=== PATIENT | male | born 1955 | race African-American/Black ===

== ENCOUNTER 2020-06-18 12:34 | Inpatient (IN) ==
[2020-06-18 12:39] VITALS: BMI 27.8
[2020-06-18] MEDS ORDERED: NS 1000 ML 1,000 ML IV ONE (13:17)
[2020-06-18] MEDS ORDERED: TORADOL 30 MG VIAL IVP ONE (13:18)
--- NOTE | 2020-06-18 13:22 | DR.HYPOGLY ---
HPI Time Seen Time Seen by Provider: 06/18/20 13:12 PCP Primary Care Physician: DR. OLIVER Complaint Chief Complaint Doctors Comments: A 64 y/o male presenting with c/o hurting all over and shaking in the past 4 days. He's also had a poor appetite. His BS have been in upper 200s now. He takes Metformin 1000 mg daily. He states that he was feeling short winded this morning, but he had no cough or fever. Chief Complaint:: PT C/O CHECKING HIS GLUCOSE THIS AM ITS HIGH 285, AND HE IS NOT FEELING WELL AND NOT ABLE TO KEEP FOOD DOWN N 3 DAYS ,BR COVID-19 Coronavirus risk:travel/contact w/high risk person: No Has patient experienced Coronavirus symptoms: Yes Coronavirus symptoms experienced: Shortness of Breath Nurses notes reviewed Nurses Notes Review: Yes Source History Provided: Patient Mode of Arrival Mode of Arrival: Ambulatory Timing Onset of Chief Complaint: 06/16/20 Context [place]: Shaky Symptoms: Shaky and Poor appetite; denies Anxious, Sweaty, Seizure, Confusion, Slurred speech, Right sided weakness, Left sided weakness, Generalized weakness and Missed a meal History of: Diabetes Associated signs and symptoms Associated signs and symptoms: None PMH PMH Past Medical History: Yes Past Medical History: Diabetes, Gout and Hypertension Past Surgical History: Yes Surgical History: Cholecystectomy Family History History of Family Medical Conditions: Yes Family Medical History: Diabetes Mellitus Social History Does patient currently use any type of tobacco product: No Have you used tobacco products in the last 12 months: No Type of Tobacco Use: None Does any household member use tobacco: No Alcohol Use: None Do you use any recreational Drugs:: No Lives With: Dad Lives Where: Home Travel Risk Coronavirus risk:travel/contact w/high risk person: No Has patient experienced Coronavirus symptoms: Yes Coronavirus symptoms experienced: Shortness of Breath Infectious screening In the last 2 months have you had wt loss of >10#?: NO Have you had fever, night sweats or hemotysis?: No Have you traveled outside the country in the last 6 months?: No Isolation: Standard ROS Review of Systems Constitutional: No Symptoms Reported and Other (poor appetite) Eyes: No Symptoms Reported ENTM: No Symptoms Reported Respiratoy: No Symptoms Reported Cardiovascular: No Symptoms Reported Gastrointestinal/Abdominal: No Symptoms Reported Genitourinary: No Symptoms Reported Neurological: No Symptoms Reported Musculoskeletal: Other (body aches) Integumentary: No Symptoms Reported Hematologic/Lymphatic: No Symptoms Reported Endocrine: No Symptoms Reported Psychiatric: No Symptoms Reported PE Vital Signs Vitals: Temperature 98.5 F Pulse Rate 72 Respiratory Rate 18 Blood Pressure 140/62 O2 Sat by Pulse Oximetry 96 General Limitations: No Limitations General Appearance: Alert and In No Apparent Distress Eyes Eye exam: Normal Appearance and EOMI ENT ENT Exam: Normal Exam, Normal Oropharynx, Normal External Ear Exam and Mucous Membranes Moist Neck Neck Exam: Normal Inspection, Full ROM and Trachea Midline Chest Chest Inspection: Normal Inspection and Symmetric Chest Wall Rise Respiratory Respiratory Exam: Normal Lung Sounds Bilat Cardiovascular Cardiovascular Exam: Regular Rate, Normal Rhythm, Normal Heart Sounds, +S1 and +S2 Abdominal Exam Abdominal Exam: Normal Inspection, Normal Bowel Sounds and Soft Extremities Extremities Exam: Normal Inspection and Full ROM Back Back Exam: Normal Inspection and Full ROM Neurologic Neurological Exam: Alert and Oriented X3 Psychiatric Psychiatric Exam: Normal Affect and Normal Mood Skin Skin Exam: Dry and Normal Color COURSE Reevaluation 1st: Unchanged Consultation Consultation Comments: Pt's. presentation and findings were reviewed with Dr. Lopez at about 1550 hrs. today. Care plan was reviewed with him and then discussed with the pt. Education/Counseling Education/Counseling: Patient, Education and Counseling Educated On: Treatment, Diagnosis, Prognosis and Needs for Follow Up ROR Labs Reviewed Laboratory Results Reviewed?: Yes Result Diagrams: 06/18/20 13:29 06/18/20 13:29 Laboratory: WBC 14.0 X10^3/uL (3.6-10.0) H 06/18/20 13: RBC 4.84 X10^6/uL (4.7-6.0) 06/18/20 13:29 Hgb 12.8 g/dL (13.5-18.0) L 06/18/20 13:29 Hct 38.5 % (42.0-54.0) L 06/18/20 13:29 MCV 79.5 fL (80.0-100.0) L 06/18/20 13:29 MCH 26.5 pg (27.0-34.0) L 06/18/20 13:29 MCHC 33.3 g/dL (33.0-35.0) 06/18/20 13: RDW 14.1 % (11.6-16.5) 06/18/20 13: Plt Count 284 X10^3/uL (150.0-450.0) 06/18/20 13: MPV 8.3 fL (7.4-11.0) 06/18/20 13:29 Neut % (Auto) 81.1 % (42.0-75.0) H 06/18/20 13: Lymph % (Auto) 6.8 % (21.0-51.0) L 06/18/20 13:29 Catron % (Auto) 12.0 % (0.0-13.0) 06/18/20 13: Eos % (Auto) 0.0 % (0.9-2.9) L 06/18/20 13: Baso % (Auto) 0.1 % (0.2-1.0) L 06/18/20 13: Neut # (Auto) 11.3 x10^3/uL (2.2-4.8) H 06/18/20 13: Lymph # (Auto) 0.9 X10^3/uL (1.3-2.9) L 06/18/20 13:29 [place] # (Auto) 1.7 x10^3/uL (0.3-0.8) H 06/18/20 13: Eos # (Auto) 0.0 x10^3/uL (0.0-0.2) 06/18/20 13: Baso # (Auto) 0.0 X10^3/uL (0.0-0.1) 06/18/20 13: Absolute Nucleated RBC 0.0 /100WBC 06/18/20 13:29 Sample Site Lbr 06/18/20 15:08 ABG pH 7.490 (7.35-7.45) H 06/18/20 15:08 ABG pCO2 36.0 mmHg (35.0-45.0) 06/18/20 15:08 ABG pO2 66.0 mmHg (80.0-100.0) L 06/18/20 15:08 ABG HCO3 27.4 mmol/L (22-26) H 06/18/20 15:08 ABG O2 Saturation 94.0 % (90-100) 06/18/20 15:08 ABG Base Excess 4.0 mmol/L (-2.0-2.0) H 06/18/20 15:08 Mahesh Test Na 06/18/20 15:08 A-a Gradient 39.0 mmHg 06/18/20 15:08 FiO2 21.0 06/18/20 15:08 Blood Gas Comments Alexander well gmb 06/18/20 15:08 Sodium 130 mmol/L (136-145) L 06/18/20 13:29 Corrected Sodium 135 mmol/L (136-145) L 06/18/20 13:29 Potassium 3.6 mmol/L (3.5-5.1) 06/18/20 13:29 Chloride 92 mmol/L (98-107) L 06/18/20 13:29 Carbon Dioxide 28.7 mmol/L (21-32) 06/18/20 13:29 BUN 36 mg/dL (7-18) H 06/18/20 13:29 Creatinine 2.00 mg/dL (0.70-1.30) H 06/18/20 13:29 Est GFR (MDRD) Af Amer 43 (>60) L 06/18/20 13:29 Est GFR (MDRD) Non-Af 36 (>60) L 06/18/20 13:29 Glucose 311 mg/dL (65-99) H 06/18/20 13:29 POC Glucose (mg/dL) 288 mg/dL (65-99) H 06/18/20 15:54 Lactic Acid 1.3 mmol/L (0.4-2.0) 06/18/20 14:48 Calcium 8.8 mg/dL (8.5-10.1) 06/18/20 13:29 Corrected Calcium 10.1 mg/dL (8.5-10.1) 06/18/20 13:29 Ferritin 3694 ng/mL (26-388) H 06/18/20 13:29 Total Bilirubin 0.80 mg/dL (0.2-1.0) 06/18/20 13:29 AST 91 Units/L (15-37) H 06/18/20 13:29 ALT 87 Units/L (12-78) H 06/18/20 13:29 Alkaline Phosphatase 105 Units/L (46-116) 06/18/20 13:29 C-Reactive Protein 321.40 mg/L (0-3.0) H 06/18/20 14:48 Total Protein 7.9 g/dL (6.4-8.2) 06/18/20 13:29 Albumin 2.4 g/dL (3.4-5.0) L 06/18/20 13:29 Globulin 5.5 g/dL (2.5-4.5) H 06/18/20 13:29 Albumin/Globulin Ratio 0.4 Ratio (1.1-2.1) L 06/18/20 13:29 Specimen Type Clean catch urine 06/18/20 15:20 Urine Color Yellow (YELLOW) 06/18/20 15:20 Urine Appearance Slightly hazy (CLEAR) 06/18/20 15:20 Urine pH 5.0 (5.0 - 8.0) 06/18/20 15:20 Ur Specific [place] 1.025 (1.000-1.030) 06/18/20 15:20 Urine Protein 3+ (NEGATIVE) 06/18/20 15:20 Urine Glucose (UA) 4+ (NEGATIVE) 06/18/20 15:20 Urine Ketones Negative (NEGATIVE) 06/18/20 15:20 Urine Occult Blood 4+ (NEGATIVE) 06/18/20 15:20 Urine Nitrite Negative (NEGATIVE) 06/18/20 15:20 Urine Bilirubin Negative (NEGATIVE) 06/18/20 15:20 Urine Urobilinogen 1+ (NORMAL) 06/18/20 15:20 Ur Leukocyte Esterase Negative (NEGATIVE) 06/18/20 15:20 Urine RBC 3-5 /HPF (0-3) A 06/18/20 15:20 Urine WBC 0-2 /HPF (0-5) 06/18/20 15:20 Ur Squamous Epith Cells Negative /HPF (NEGATIVE) 06/18/20 15:20 Urine Bacteria Negative /HPF (NEGATIVE) 06/18/20 15:20 Ur Culture Indicated? No/not indicated 06/18/20 15:20 SARS-CoV-2 (PCR) Negative (NEGATIVE) 06/18/20 15:20 XRAY XRAY Interpreted by: Self X-ray Results: CXR: RML infiltrate. no cardiomegaly. Radiology report is pending. Opioid Opioid Risk Tool Age (Agustín box if 16-45): No History of Preadolescent Sexual Abuse: No Total: 0 Total Score Risk Category: Low Risk Copyright: [facility] predicting aberrant behaviors Diagnosis Discharge Problem: Lobar pneumonia, unspecified organism, Acute hyponatremia Leukocytopenia, unspecified Qualifiers: Leukopenia type: unspecified Qualified Code(s): D72.819 - Decreased white blood cell count, unspecified Uncontrolled type 2 diabetes mellitus Qualifiers: Glycemic state: with hyperglycemia Qualified Code(s): E11.65 - Type 2 diabetes mellitus with hyperglycemia ADDITIONAL NOTES Additional Notes Additional Notes: [id number] 1955 Sex: M Location: ER Order Number(s): [id number] Procedure(s):CHEST, 1 VIEW Ordering Physician: ENRIQUE PLATT Primary Care: JANE,None Service Date: 06/18/20 Service Time: 1320 HISTORY SOB/DM II STUDY CHEST x-ray, 1 VIEW COMPARISON X-ray 03/31/2020 FINDINGS The trachea is midline. The cardiac silhouette is unremarkable . Vague infiltrates are seen in the mid to lower right lung without definite involvement of the left lung. Findings are worrisome for pneumonia. No pneumothorax or pleural effusion is seen. No acute bony abnormality is seen. IMPRESSION Probable pneumonia in the right middle and lower lobes of the lungs. Continued x-ray follow-up is recommended to document resolution. Electronically signed by: Сергей Magana (Jun 18, 2020 15:10:16)
[2020-06-18 13:36] LABS: BASOPHILS % (AUTO) 0.1 % (0.2-1.0); HEMATOCRIT 38.5 % (42.0-54.0); HEMOGLOBIN 12.8 g/dL (13.5-18.0); LYMPHOCYTES # (AUTO) 0.9 X10^3/uL (1.3-2.9); LYMPHOCYTES % (AUTO) 6.8 % (21.0-51.0); MEAN CORPUSCULAR HEMOGLOBIN 26.5 pg (27.0-34.0); MEAN CORPUSCULAR HGB CONC 33.3 g/dL (33.0-35.0); MEAN CORPUSCULAR VOLUME 79.5 fL (80.0-100.0); MEAN PLATELET VOLUME 8.3 fL (7.4-11.0); MONOCYTES # (AUTO) 1.7 x10^3/uL (0.3-0.8); NEUTROPHILS # (AUTO) 11.3 x10^3/uL (2.2-4.8); NEUTROPHILS % (AUTO) 81.1 % (42.0-75.0); PLATELET COUNT 284 X10^3/uL (150.0-450.0); RED BLOOD COUNT 4.84 X10^6/uL (4.7-6.0); RED CELL DISTRIBUTION WIDTH 14.1 % (11.6-16.5)
[2020-06-18 13:46] LABS: ALBUMIN 2.4 g/dL (3.4-5.0); CALCIUM 8.8 mg/dL (8.5-10.1); CARBON DIOXIDE 28.7 mmol/L (21-32); COR CA(FOR HYPOALB) 10.1 mg/dL (8.5-10.1); TOTAL PROTEIN 7.9 g/dL (6.4-8.2)
[2020-06-18] MEDS ORDERED: ZOFRAN INJ 4 MG VIAL IVP ONE (13:56)
[2020-06-18] MEDS ORDERED: TORADOL 30 MG VIAL ONE (14:02)
[2020-06-18] MEDS ORDERED: LEVAQUIN PREMIX IV 750 MG 750 MG/150 ML BAG IV ONE ×2 (14:11→14:29)
--- NOTE | 2020-06-18 15:11 | RAD ---
HISTORYSOB/DM IISTUDYCHEST x-ray, 1 VIEWCOMPARISONX-ray 03/31/2020FINDINGSThe trachea is midline. The cardiac silhouette is unremarkable .Vague infiltrates are seen in the mid to lower right lung without definite involvement of the left lung. Findings are worrisome for pneumonia. No pneumothorax or pleural effusion is seen.No acute bony abnormality is seen.IMPRESSIONProbable pneumonia in the right middle and lower lobes of the lungs. Continued x-ray follow-up is recommended to document resolution.Electronically signed by: Сергей Magana (Jun 18, 2020 15:10:16)
[2020-06-18 15:14] LABS: ABG HCO3 27.4 mmol/L (22-26)
[2020-06-18 15:35] LABS: BILIRUBIN,URINE NEGATIVE (NEGATIVE); BLOOD/HEMOGLOBIN,URINE 4+ (NEGATIVE); GLUCOSE, URINE 4+ (NEGATIVE); KETONES,URINE NEGATIVE (NEGATIVE); LEUKOCYTE ESTERASE ,URINE NEGATIVE (NEGATIVE); NITRITES,URINE NEGATIVE (NEGATIVE); PROTEIN,URINE 3+ (NEGATIVE); UROBILINOGEN,URINE 1+ (NORMAL)
[2020-06-18 15:39] LABS: LACTIC ACID 1.3 mmol/L (0.4-2.0)
[2020-06-18 15:42] LABS: APPEARANCE,URINE SLIGHTLY HAZY (CLEAR); COLOR,URINE YELLOW (YELLOW)
[2020-06-18 15:43] LABS: BACTERIA,URINE NEGATIVE /HPF (NEGATIVE); SQUAMOUS EPITHELIAL CELL,UR NEGATIVE /HPF (NEGATIVE)
[2020-06-18] MEDS ORDERED: DUONEB 0.5 MG/3 MG (3 mL) NEB SCH (18:00)
[2020-06-18] MEDS ORDERED: PERCOCET TAB 5/325 MG PO PRN (18:02)
[2020-06-18] MEDS: ROBITUSSIN DM PO SCH ×2 (18:04→21:29)
[2020-06-18] MEDS ORDERED: NS 1/2 1000 ML IV 1,000 ML IV ONE (18:10)
[2020-06-18] MEDS: ZOSYN VIAL 2.25 GRAMS 2.25 G in NS 100 ML IV + SPIKE MINIBAG* 100 ML IV SCH ×2 (18:21→21:04)
[2020-06-18] MEDS: NS 1/2 1000 ML IV 1,000 ML IV SCH (18:22)
[2020-06-18] MEDS ORDERED: SOLU-Medrol 40 MG VIAL ONE (20:48)
[2020-06-18] MEDS ORDERED: PULMICORT NEB TX 0.5 MG NEB SCH (21:00)
[2020-06-18] MEDS: CATAPRES TAB 0.1 MG PO SCH (21:28)
[2020-06-18] MEDS: SOLU-Medrol 40 MG VIAL IVP SCH (21:29)
[2020-06-18] MEDS: HumaLOG SC PRN (21:29)
[2020-06-18] MEDS: DUONEB 0.5 MG/3 MG (3 mL) NEB SCH (22:20)
[2020-06-19 05:06] LABS: ABG ALLEN TEST POS; ABG BASE EXCESS 2.4 mmol/L (-2.0-2.0); ABG HCO3 26.4 mmol/L (22-26)
[2020-06-19 05:20] LABS: BASOPHILS % (AUTO) 0.2 % (0.2-1.0); HEMATOCRIT 35.8 % (42.0-54.0); LYMPHOCYTES # (AUTO) 0.7 X10^3/uL (1.3-2.9); MEAN CORPUSCULAR HEMOGLOBIN 26.8 pg (27.0-34.0); MEAN CORPUSCULAR HGB CONC 33.4 g/dL (33.0-35.0); MEAN CORPUSCULAR VOLUME 80.1 fL (80.0-100.0); MEAN PLATELET VOLUME 8.6 fL (7.4-11.0); MONOCYTES # (AUTO) 0.3 x10^3/uL (0.3-0.8); MONOCYTES % (AUTO) 2.5 % (0.0-13.0); NEUTROPHILS # (AUTO) 9.5 x10^3/uL (2.2-4.8); NEUTROPHILS % (AUTO) 90.3 % (42.0-75.0); PLATELET COUNT 281 X10^3/uL (150.0-450.0); RED BLOOD COUNT 4.47 X10^6/uL (4.7-6.0); RED CELL DISTRIBUTION WIDTH 14.3 % (11.6-16.5); WHITE BLOOD COUNT 10.5 X10^3/uL (3.6-10.0)
[2020-06-19 05:35] LABS: CALCIUM 8.7 mg/dL (8.5-10.1); CARBON DIOXIDE 26.8 mmol/L (21-32); COR CA(FOR HYPOALB) 10.3 mg/dL (8.5-10.1); CREATININE 1.88 mg/dL (0.70-1.30); TOTAL PROTEIN 7.2 g/dL (6.4-8.2)
--- NOTE | 2020-06-19 05:44 | RAD ---
HISTORYSOBSTUDYCHEST, 1 [id number]/16/2020FINDINGSThe trachea is midline. The cardiac silhouette is unremarkable. Mild infiltrates are again seen in the right lung base. Right upper and left lung ramirez remain clear. No pleural effusion or pneumothorax.. The bony thorax is unremarkable.IMPRESSIONRight basilar infiltrate unchanged from 06/18/2020Electronically signed by: Narciso Chase (Jun 19, 2020 05:42:53)
[2020-06-19] MEDS: HumaLOG SC PRN ×3 (05:51→16:35)
[2020-06-19] MEDS: SOLU-Medrol 40 MG VIAL IVP SCH ×3 (05:51→21:21)
[2020-06-19] MEDS: ZOSYN VIAL 2.25 GRAMS 2.25 G in NS 100 ML IV + SPIKE MINIBAG* 100 ML IV SCH ×3 (05:51→21:21)
[2020-06-19 06:04] LABS: BAND NEUTROPHILS % 10 % (0-10)
[2020-06-19 06:05] LABS: HYPOCHROMASIA SLIGHT; PLATELET MORPHOLOGY COMMENT NORMAL (NORMAL)
[2020-06-19] MEDS: NS 1/2 1000 ML IV 1,000 ML IV SCH ×2 (08:09→09:36)
[2020-06-19] MEDS: VSL#3 PO SCH (08:09)
[2020-06-19] MEDS ORDERED: REMDESIVIR (INVESTIGATIONAL DRUG GS-5734) 200 MG in NS 250 ML IV 250 ML IV NR (08:09)
[2020-06-19] MEDS: CATAPRES TAB 0.1 MG PO SCH ×2 (08:10→21:18)
[2020-06-19] MEDS: BENICAR TAB 40 MG PO SCH (08:10)
[2020-06-19] MEDS: ROBITUSSIN DM PO SCH ×4 (08:10→21:20)
[2020-06-19] MEDS: NORVASC TAB 10 MG PO SCH (08:11)
[2020-06-19] MEDS: LEVEMIR SC SCH ×2 (08:34→21:18)
[2020-06-19] MEDS: LOVENOX INJ 30 MG SYR SC SCH ×2 (08:35→21:19)
[2020-06-19] MEDS: TESSALON PERLES PO SCH ×3 (08:37→21:21)
[2020-06-19] MEDS: PROTONIX INJ 40 MG VIAL IVP SCH ×2 (08:37→21:20)
[2020-06-19] MEDS ORDERED: NAPROSYN PO SCH (09:00)
[2020-06-19] MEDS ORDERED: HYDROCHLOROTHIAZIDE 25 MG TAB PO SCH (09:00)
[2020-06-19] MEDS ORDERED: NS 1/2 1000 ML IV 1,000 ML IV ONE (09:34)
[2020-06-19] MEDS: PEPCID 20 MG IV PREMIX* 20 MG/50 ML BAG IV SCH ×2 (09:35→21:20)
[2020-06-19] MEDS: DUONEB 0.5 MG/3 MG (3 mL) NEB SCH ×4 (09:40→20:00)
[2020-06-19] MEDS: MUCOMYST (RESPIRATORY USE ONLY) NEB SCH ×2 (09:40→20:00)
[2020-06-19] MEDS: PULMICORT NEB TX 0.5 MG NEB SCH ×2 (09:40→20:00)
[2020-06-19 09:44] LABS: CKMB % 0.5 % (<4); CREATINE KINASE 441 Units/L (39-308); CREATINE KINASE MB 2.3 ng/mL (0-4.0); TROPONIN I < 0.02 ng/mL (0-1.5)
--- NOTE | 2020-06-19 10:13 | DR.H&P ---
H&P - History & Physical for Day of: H&P Date: 06/18/20 - Chief Complaint Chief Complaint: SOB, COUGH, BODY ACHES, NAUSEA AND VOMITING, POOR APPETITE, ELEVATED BLOOD GLUCOSE LEVELS - History of Present Illness History of Present Illness: IS A 64 YEAR OLD PATIENT OF . HE PRESENTED TO THE ER WITH COMPLAINTS OF SHORTENESS OF BREATH, MILD NON-PRODUCTIVE COUGH, CHEST DISCOMFORT, GENERALIZED BODY ACHES, NAUSEA AND VOMITING, POOR APPETITE, AND ELEVATED BLOOD GLUCOSE LEVELS. SYMPTOMS STARTED APPROXIMATELY FOUR DAYS PRIOR TO ARRIVAL. HIS PMH INCLUDES DIABETES, GOUT, HTN, CHOLECYSTECTOMY. ON ARRIVAL TO THE ER, VITALS WERE 98.5-91-20-93%RA-140/79. LABS WERE OBTAINED. ABNORMAL LAB VALUES INCLUDE THE FOLLOWING: WBC 14.0, HGB 12.8, HCT 38.5, SODIUM 130, CHLORIDE 92, BUN 36, CREATININE 2.00, GLUCOSE 311, FERRITIN 3694, AST 91, ALT 87, CRP 321.40, ALBUMIN 2.4, GLOBULIN 5.5. AN ABG WAS OBTAINED AND REVEALED: PH 7.490, PC02 36.0, P02 66.0, HC03 27.4, 02 SAT 94.0, BASE EXCESS 4.0, FI02 21.0. URINALYSIS REVEALED: WBC 0-2, RBC 3-5, OCCULT BLOOD 4+, PROTEIN 3+, BACTERIA NEGATIVE, LEUKOCYTES NEGATIVE. RAPID COVID WAS NEGATIVE, HOWEVER, A SEND OUT SWAB WAS COLLECTED WELL DUE TO SUSPECTED COVID. BLOOD CULTURES AND SPUTUM CULTURES WERE SET UP. A CHEST XRAY WAS OBTAINED AND REVEALED: Probable pneumonia in the right middle and lower lobes of the lungs. HE WAS GIVEN A NORMAL SALINE BOLUS, DUONEB X 1, TORADOL 30MG IV X 1 IN THE ER. HE WAS ADMITTED FOR FURTHER EVALUATION AND TREATMENT OF MULTIFOCAL PNEUMONIA, SUSPECTED COVID, HYPONATREMIA, AND CHRONIC KIDNEY DISEASE. HE WAS STARTED ON 1/2NS AT 75 ML/HR, ZOSYN 2.25G IV TID, LEVAQUIN 750MG IV Q48H, REMDESIVIR 100MG IV DAILY, DUONEBS QID, PULMICORT NEBS BID, MUCOMYST IN NEB TX, LOVENOX 30MG SC BID, SOLU-MEDROL 80MG IV Q8H, HUMALOG SLIDING SCALE, LEVEMIR 10 UNITS SC BID, TESSALON PERLES TID, ROBITUSSIN DM QID, PROTONIX 40MG IV BID, PEPCID 20MG IV Q12H, AND HIS HOME MEDICATIONS WERE RESUMED. WE WILL OBTAIN SERIAL CARDIAC ENZYMES, EKGs, AND AN ECHO. OTHERWISE, WE PLAN TO FOLLOW UP WITH AM LABS, CHEST XRAY, ABG, AND CONTINUE TO MONITOR. - Past Medical History Past Medical History: Hypertension, Diabetes, Gout - Past Surgical History Surgical History: Cholecystectomy - Family History Family Medical History: Diabetes Mellitus - Social History Does patient currently use any type of tobacco product: No Have you used tobacco products in the last 12 months: No Type of Tobacco Use: None Does any household member use tobacco: No Alcohol Use: None Drug Use: Prescription Drugs - Medications Home Medications: No Known Drug Allergies Allergy (Verified 06/18/20 12:35) CONTINUE taking the following medications amlodipine 10 mg PO DAILY 06/18/20 [History] cephalexin 500 mg PO QID 06/18/20 [History] clonidine HCl 0.1 mg PO BID 06/18/20 [History] diclofenac sodium 75 mg PO DAILY 06/18/20 [History] metformin 1,000 mg PO DAILY 06/18/20 [History] olmesartan-hydrochlorothiazide 1 tab PO DAILY 06/18/20 [History] oxycodone-acetaminophen 1 tab PO Q6H PRN 06/18/20 [History] tramadol 50 mg PO TID 06/18/20 [History] - Review of Systems Constitutional: Weakness Eyes: No Symptoms Reported ENT: No Symptoms Reported Respiratory: See HPI, Cough, Shortness of Breath, Wheezing Cardiovascular: Chest Pain Gastrointestinal: No Symptoms Reported Genitourinary: No Symptoms Reported Musculoskeletal: No Symptoms Reported Skin: No Symptoms Reported Neurological: Weakness - Physical Exam Vital Signs: Temperature 97.9 F Pulse Rate [Left Brachial] 50 Pulse Rate 68 Respiratory Rate 19 Blood Pressure [Left Arm] 120/71 Blood Pressure 140/62 O2 Sat by Pulse Oximetry 97 Oriented: Normal Eyes: Normal Ear: Normal Nose: Normal Throat: Normal Respiratory: Diminished Throughout, Wheezes Throughout Cardiovascular: Normal : Normal Auscultation: Bowel Sounds: Normal Palpation: Normal Tenderness: Normal Skin: Normal Musculoskeletal: Normal Psychiatric: Normal Mood Description: Calm Affect: Normal Speech Pattern: Clear - Assessment/Plan (1) Multifocal pneumonia Status: Acute Plan: ADMIT, 1/2NS AT 75 ML/HR, ZOSYN 2.25G IV TID, LEVAQUIN 750MG IV Q48H, REMDESIVIR 100MG IV DAILY, DUONEBS QID, PULMICORT NEBS BID, MUCOMYST IN NEB TX, LOVENOX 30MG SC BID, SOLU-MEDROL 80MG IV Q8H, HUMALOG SLIDING SCALE, LEVEMIR 10 UNITS SC BID, TESSALON PERLES TID, ROBITUSSIN DM QID, PROTONIX 40MG IV BID, PEPCID 20MG IV Q12H (2) Suspected COVID-19 virus infection Status: Acute (3) Acute hyponatremia Status: Acute (4) Chronic kidney disease Qualifiers: Chronic kidney disease stage: unspecified stage Qualified Code(s): N18.9 - Chronic kidney disease, unspecified Status: Chronic (5) Diabetes mellitus Qualifiers: Diabetes mellitus type: type 2 Diabetes mellitus joint terminal attack controller insulin use: unspecified joint terminal attack controller insulin use status Diabetes mellitus complication status: without complication Qualified Code(s): E11.9 - Type 2 diabetes mellitus without complications Status: Chronic (6) Hypertension Qualifiers: Hypertension type: essential hypertension Qualified Code(s): I10 - Essential (primary) hypertension Status: Chronic - Allergies Allergies/Adverse Reactions: Allergies Allergy/AdvReac Type Severity Reaction Status Date / Time No Known Drug Allergies Allergy Verified 06/18/20 12:35
[2020-06-19 13:10] LABS: CKMB % 0.5 % (<4); CREATINE KINASE 388 Units/L (39-308); TROPONIN I < 0.02 ng/mL (0-1.5)
[2020-06-19 17:40] LABS: CKMB % 0.6 % (<4); CREATINE KINASE 333 Units/L (39-308); CREATINE KINASE MB 1.9 ng/mL (0-4.0); TROPONIN I < 0.02 ng/mL (0-1.5)
[2020-06-19] MEDS: COLACE CAP 100 MG PO SCH (21:18)
[2020-06-19] MEDS: SNACK - Diabetic Appropriate PO SCH (21:21)
[2020-06-20] MEDS: NS 1/2 1000 ML IV 1,000 ML IV SCH ×2 (02:11→06:34)
[2020-06-20 05:25] LABS: BASOPHILS % (AUTO) 0.1 % (0.2-1.0); HEMATOCRIT 36.7 % (42.0-54.0); HEMOGLOBIN 11.8 g/dL (13.5-18.0); LYMPHOCYTES # (AUTO) 0.8 X10^3/uL (1.3-2.9); LYMPHOCYTES % (AUTO) 4.8 % (21.0-51.0); MEAN CORPUSCULAR HEMOGLOBIN 26.3 pg (27.0-34.0); MEAN CORPUSCULAR HGB CONC 32.2 g/dL (33.0-35.0); MEAN CORPUSCULAR VOLUME 81.6 fL (80.0-100.0); MEAN PLATELET VOLUME 9.2 fL (7.4-11.0); MONOCYTES # (AUTO) 0.4 x10^3/uL (0.3-0.8); MONOCYTES % (AUTO) 2.3 % (0.0-13.0); NEUTROPHILS # (AUTO) 14.7 x10^3/uL (2.2-4.8); NEUTROPHILS % (AUTO) 92.8 % (42.0-75.0); PLATELET COUNT 342 X10^3/uL (150.0-450.0); RED CELL DISTRIBUTION WIDTH 14.8 % (11.6-16.5); WHITE BLOOD COUNT 15.8 X10^3/uL (3.6-10.0)
[2020-06-20] MEDS ORDERED: NS 100 ML IV + SPIKE MINIBAG* 100 ML IV ONE (05:30)
[2020-06-20] MEDS ORDERED: NS 1/2 1000 ML IV 1,000 ML IV ONE (05:30)
[2020-06-20 05:41] LABS: ALBUMIN 1.9 g/dL (3.4-5.0); CALCIUM 8.4 mg/dL (8.5-10.1); CARBON DIOXIDE 25.9 mmol/L (21-32); COR CA(FOR HYPOALB) 10.1 mg/dL (8.5-10.1); CREATININE 2.12 mg/dL (0.70-1.30); TOTAL PROTEIN 6.9 g/dL (6.4-8.2)
--- NOTE | 2020-06-20 05:56 | RAD ---
HISTORYShortness of breathSTUDYChest AP [id number]/17/2020FINDINGSThe heart is upper limits normal in size. The jama are normal. The lungs are mildly hypoinflated but free of acute infiltrates. No pleural effusions are identified. Bony thorax is unremarkable.IMPRESSIONLungs hypoinflated but now clearElectronically signed by: DAVIDA BAKER (Jun 20, 2020 05:54:59)
[2020-06-20 06:21] LABS: PLATELET MORPHOLOGY COMMENT NORMAL (NORMAL)
[2020-06-20] MEDS: SOLU-Medrol 40 MG VIAL IVP SCH (06:32)
[2020-06-20] MEDS: ZOSYN VIAL 2.25 GRAMS 2.25 G in NS 100 ML IV + SPIKE MINIBAG* 100 ML IV SCH ×3 (06:33→22:00)
[2020-06-20] MEDS: TESSALON PERLES PO SCH ×3 (06:33→21:59)
[2020-06-20] MEDS: HumaLOG SC PRN ×3 (06:39→18:29)
[2020-06-20] MEDS: CATAPRES TAB 0.1 MG PO SCH ×2 (08:09→21:57)
[2020-06-20] MEDS: BENICAR TAB 40 MG PO SCH (08:09)
[2020-06-20] MEDS: ROBITUSSIN DM PO SCH ×4 (08:10→21:59)
[2020-06-20] MEDS: VSL#3 PO SCH (08:10)
[2020-06-20] MEDS: NORVASC TAB 10 MG PO SCH (08:10)
[2020-06-20] MEDS: LOVENOX INJ 30 MG SYR SC SCH ×2 (08:13→21:59)
[2020-06-20] MEDS: PEPCID 20 MG IV PREMIX* 20 MG/50 ML BAG IV SCH (08:15)
[2020-06-20] MEDS: PROTONIX INJ 40 MG VIAL IVP SCH ×2 (08:16→21:59)
[2020-06-20] MEDS: LEVEMIR SC SCH ×2 (08:38→21:58)
[2020-06-20] MEDS: NS 1000 ML 1,000 ML IV SCH (08:38)
[2020-06-20] MEDS ORDERED: LEVAQUIN PREMIX IV 750 MG 750 MG/150 ML BAG IV SCH (09:00)
[2020-06-20] MEDS: MUCOMYST (RESPIRATORY USE ONLY) NEB SCH ×2 (09:15→21:37)
[2020-06-20] MEDS: PULMICORT NEB TX 0.5 MG NEB SCH ×2 (09:15→21:37)
[2020-06-20] MEDS: DUONEB 0.5 MG/3 MG (3 mL) NEB SCH ×4 (09:15→21:38)
[2020-06-20] MEDS: REMDESIVIR (INVESTIGATIONAL DRUG GS-5734) 100 MG in NS 250 ML IV 250 ML IV SCH (10:16)
--- NOTE | 2020-06-20 10:42 | PCM.PROG ---
Progress Note Progress Note for Day of Date of Exam: 06/20/20 Subjective Subjective: Pt is a 64 yo m pmhx HTN, DMT2, CKD, admitted for pneumonia, suspected covid (rapid covid negative, PCR pending). This morning he is feeling a little better, sitting up in bed. He is currently on RA. Labs/imaging: Wbc 10.5>15.8, Hgb 11.8, Plt 342, Na 139, K 3.8, Cr 1.8>2.12, Gluc 320, CRP 280>169, CXR: lungs hypoinflated but now clear, TTE:EF:56%, SputumCx pending. His treatment course includes: IVF 1/2NS will change to NS and increase rate to 125 mL/h for PRABHU. Hold HCTZ. Continue Remdesivir, Abx: Levaquin + Zosyn, Solumedrol, Bronchodilators, immune supporting supplements. Pt having hyperglycemia, will increase Lantus to 15 units, is on SSI. Continue to monitor and follow up labs/imaging in the morning. Past Medical Family Social History Past Med/Fam/Surg Hx: No changes since H&P Allergies: Allergies No Known Drug Allergies Allergy (Verified 06/18/20 12:35) Review of Systems ROS: No change since H&P Vital Signs and I&O's Vital Signs: Temperature 98.2 F Pulse Rate [Left Brachial] 64 Pulse Rate 50 Respiratory Rate 25 Blood Pressure [Left Arm] 145/77 Blood Pressure 140/62 O2 Sat by Pulse Oximetry 98 Intake and Output: Intake & Output 06/17/20 06/18/20 06/19/20 06/20/20 23:59 23:59 23:59 23:59 Intake Total 480 / 480 3490 / 3490 1100 / 1100 Output Total 0 / 0 2450 / 2450 600 / 600 Balance 480 / 480 1040 / 1040 500 / 500 Physical Exam Oriented: Normal Eyes: Normal Ear: Normal Nose: Normal Throat: Normal Respiratory: Normal Cardiovascular: Normal : Normal Auscultation: Bowel Sounds: Normal Tenderness: Normal Skin: Normal Musculoskeletal: Normal Psychiatric: Normal Mood Description: Calm Affect: Normal Speech Pattern: Clear and Appropriate Laboratory and Diagnostics Result Diagrams: 06/20/20 04:01 06/20/20 04:01 Labs: 06/18/20 18:15 Sputum - Expectorated Sputum Sputum Culture - Final 06/18/20 18:15 Sputum - Expectorated Sputum - Final 06/18/20 14:55 Blood Blood Culture - Preliminary 06/18/20 14:48 Blood Blood Culture - Preliminary Laboratory WBC 15.8 X10^3/uL (3.6-10.0) H 06/20/20 04:01 RBC 4.50 X10^6/uL (4.7-6.0) L 06/20/20 04:01 Hgb 11.8 g/dL (13.5-18.0) L 06/20/20 04:01 Hct 36.7 % (42.0-54.0) L 06/20/20 04:01 MCV 81.6 fL (80.0-100.0) 06/20/20 04:01 MCH 26.3 pg (27.0-34.0) L 06/20/20 04:01 MCHC 32.2 g/dL (33.0-35.0) L 06/20/20 04:01 RDW 14.8 % (11.6-16.5) 06/20/20 04:01 Plt Count 342 X10^3/uL (150.0-450.0) 06/20/20 04:01 Plt Count Comment Adequate (ADEQUATE) 06/20/20 04:01 MPV 9.2 fL (7.4-11.0) 06/20/20 04:01 Neut % (Auto) 92.8 % (42.0-75.0) H 06/20/20 04:01 Lymph % (Auto) 4.8 % (21.0-51.0) L 06/20/20 04:01 [place] % (Auto) 2.3 % (0.0-13.0) 06/20/20 04:01 Eos % (Auto) 0.0 % (0.9-2.9) L 06/20/20 04:01 Baso % (Auto) 0.1 % (0.2-1.0) L 06/20/20 04:01 Neut # (Auto) 14.7 x10^3/uL (2.2-4.8) H 06/20/20 04:01 Lymph # (Auto) 0.8 X10^3/uL (1.3-2.9) L 06/20/20 04:01 [place] # (Auto) 0.4 x10^3/uL (0.3-0.8) 06/20/20 04:01 Eos # (Auto) 0.0 x10^3/uL (0.0-0.2) 06/20/20 04:01 Baso # (Auto) 0.0 X10^3/uL (0.0-0.1) 06/20/20 04:01 Absolute Nucleated RBC 0.0 /100WBC 06/20/20 04:01 Total Counted 100 06/20/20 04:01 Neutrophils % (Manual) 91 % (39-76) H 06/20/20 04:01 Band Neutrophils % 10 % (0-10) 06/19/20 04:00 Lymphocytes % (Manual) 7 % (13-43) L 06/20/20 04:01 Monocytes % (Manual) 2 % (4-9) L 06/20/20 04:01 Plt Morphology Comment Normal (NORMAL) 06/20/20 04:01 RBC Morphology Normal (NORMAL) 06/20/20 04:01 Hypochromasia Slight A 06/19/20 04:00 Sample Site Lrad 06/19/20 04:57 ABG pH 7.450 (7.35-7.45) 06/19/20 04:57 ABG pCO2 38.0 mmHg (35.0-45.0) 06/19/20 04:57 ABG pO2 85.0 mmHg (80.0-100.0) 06/19/20 04:57 ABG HCO3 26.4 mmol/L (22-26) H 06/19/20 04:57 ABG O2 Saturation 97.0 % (90-100) 06/19/20 04:57 ABG Base Excess 2.4 mmol/L (-2.0-2.0) H 06/19/20 04:57 Mahesh Test Pos 06/19/20 04:57 A-a Gradient 17.0 mmHg 06/19/20 04:57 FiO2 21.0 06/19/20 04:57 Blood Gas Comments Alexander abg well-mtf 06/19/20 04:57 Sodium 132 mmol/L (136-145) L 06/20/20 04:01 Corrected Sodium 139 mmol/L (136-145) 06/20/20 04:01 Potassium 3.8 mmol/L (3.5-5.1) 06/20/20 04:01 Chloride 97 mmol/L (98-107) L 06/20/20 04:01 Carbon Dioxide 25.9 mmol/L (21-32) 06/20/20 04:01 BUN 53 mg/dL (7-18) H 06/20/20 04:01 Creatinine 2.12 mg/dL (0.70-1.30) H 06/20/20 04:01 Est GFR (MDRD) Af Amer 40 (>60) L 06/20/20 04:01 Est GFR (MDRD) Non-Af 33 (>60) L 06/20/20 04:01 Glucose 392 mg/dL (65-99) H 06/20/20 04:01 POC Glucose (mg/dL) 320 mg/dL (65-99) H 06/20/20 06:18 Lactic Acid 1.3 mmol/L (0.4-2.0) 06/18/20 14:48 Calcium 8.4 mg/dL (8.5-10.1) L 06/20/20 04:01 Corrected Calcium 10.1 mg/dL (8.5-10.1) 06/20/20 04:01 Ferritin 3914 ng/mL (26-388) H 06/20/20 04:01 Total Bilirubin 0.50 mg/dL (0.2-1.0) 06/20/20 04:01 AST 37 Units/L (15-37) 06/20/20 04:01 ALT 60 Units/L (12-78) 06/20/20 04:01 Alkaline Phosphatase 106 Units/L (46-116) 06/20/20 04:01 Creatine Kinase 333 Units/L (39-308) H 06/19/20 16:45 CK-MB (CK-2) 1.9 ng/mL (0-4.0) 06/19/20 16:45 CK/CKMB % Calc 0.6 % (<4) 06/19/20 16:45 Troponin I < 0.02 ng/mL (0-1.5) 06/19/20 16:45 C-Reactive Protein 169.70 mg/L (0-3.0) H 06/20/20 04:01 B-Natriuretic Peptide 80.5 pg/mL (0-79) H 06/19/20 08:46 Total Protein 6.9 g/dL (6.4-8.2) 06/20/20 04:01 Albumin 1.9 g/dL (3.4-5.0) L 06/20/20 04:01 Globulin 5.0 g/dL (2.5-4.5) H 06/20/20 04:01 Albumin/Globulin Ratio 0.4 Ratio (1.1-2.1) L 06/20/20 04:01 Specimen Type Clean catch urine 06/18/20 15:20 Urine Color Yellow (YELLOW) 06/18/20 15:20 Urine Appearance Slightly hazy (CLEAR) 06/18/20 15:20 Urine pH 5.0 (5.0 - 8.0) 06/18/20 15:20 Ur Specific [place] 1.025 (1.000-1.030) 06/18/20 15:20 Urine Protein 3+ (NEGATIVE) 06/18/20 15:20 Urine Glucose (UA) 4+ (NEGATIVE) 06/18/20 15:20 Urine Ketones Negative (NEGATIVE) 06/18/20 15:20 Urine Occult Blood 4+ (NEGATIVE) 06/18/20 15:20 Urine Nitrite Negative (NEGATIVE) 06/18/20 15:20 Urine Bilirubin Negative (NEGATIVE) 06/18/20 15:20 Urine Urobilinogen 1+ (NORMAL) 06/18/20 15:20 Ur Leukocyte Esterase Negative (NEGATIVE) 06/18/20 15:20 Urine RBC 3-5 /HPF (0-3) A 06/18/20 15:20 Urine WBC 0-2 /HPF (0-5) 06/18/20 15:20 Ur Squamous Epith Cells Negative /HPF (NEGATIVE) 06/18/20 15:20 Urine Bacteria Negative /HPF (NEGATIVE) 06/18/20 15:20 Ur Culture Indicated? No/not indicated 06/18/20 15:20 SARS-CoV-2 (PCR) Negative (NEGATIVE) 06/18/20 15:20 Plan (1) Multifocal pneumonia: Status: Acute Plan: ADMIT, NS@125 ML/HR, ZOSYN 2.25G IV TID, LEVAQUIN 750MG IV Q48H, REMDESIVIR 100MG IV DAILY, DUONEBS QID, PULMICORT NEBS BID, MUCOMYST IN NEB [place], LOVENOX 30MG SC BID, SOLU-MEDROL 80MG IV Q8H, HUMALOG SLIDING SCALE, LEVEMIR 10 UNITS SC BID, TESSALON PERLES TID, ROBITUSSIN DM QID, PROTONIX 40MG IV BID, PEPCID 20MG IV Q12H (2) Suspected COVID-19 virus infection: Status: Acute (3) Acute hyponatremia: Status: Acute (4) Chronic kidney disease: Status: Chronic Qualifiers: Chronic kidney disease stage: unspecified stage Qualified Code(s): N18.9 - Chronic kidney disease, unspecified (5) Diabetes mellitus: Status: Chronic Qualifiers: Diabetes mellitus complication status: without complication Diabetes m [facility] senior living insulin use: unspecified senior living insulin use status Di abetes mellitus type: type 2 Qualified Code(s): E11.9 - Type 2 diabetes mellitus without complications (6) Hypertension: Status: Chronic Qualifiers: Hypertension type: essential hypertension Qualified Code(s): I10 - Essential (primary) hypertension
[2020-06-20] MEDS ORDERED: HALDOL INJ IM ONE (12:49)
[2020-06-20] MEDS: COLACE CAP 100 MG PO SCH (21:57)
[2020-06-20] MEDS: SNACK - Diabetic Appropriate PO SCH (22:00)
[2020-06-21] MEDS: NS 1000 ML 1,000 ML IV SCH (01:00)
[2020-06-21 04:55] LABS: BASOPHILS % (AUTO) 0.1 % (0.2-1.0); HEMATOCRIT 35.4 % (42.0-54.0); HEMOGLOBIN 11.4 g/dL (13.5-18.0); LYMPHOCYTES # (AUTO) 1.1 X10^3/uL (1.3-2.9); LYMPHOCYTES % (AUTO) 6.2 % (21.0-51.0); MEAN CORPUSCULAR HEMOGLOBIN 26.1 pg (27.0-34.0); MEAN CORPUSCULAR HGB CONC 32.3 g/dL (33.0-35.0); MEAN CORPUSCULAR VOLUME 80.8 fL (80.0-100.0); MEAN PLATELET VOLUME 8.5 fL (7.4-11.0); MONOCYTES % (AUTO) 5.7 % (0.0-13.0); NEUTROPHILS # (AUTO) 15.3 x10^3/uL (2.2-4.8); PLATELET COUNT 401 X10^3/uL (150.0-450.0); RED BLOOD COUNT 4.38 X10^6/uL (4.7-6.0); RED CELL DISTRIBUTION WIDTH 14.2 % (11.6-16.5); WHITE BLOOD COUNT 17.4 X10^3/uL (3.6-10.0)
[2020-06-21 05:11] LABS: CALCIUM 8.4 mg/dL (8.5-10.1); CARBON DIOXIDE 28.8 mmol/L (21-32); CREATININE 1.81 mg/dL (0.70-1.30); TOTAL PROTEIN 6.5 g/dL (6.4-8.2)
[2020-06-21] MEDS ORDERED: KLOR-CON PO PRN (05:36)
[2020-06-21] MEDS ORDERED: MICRO K EXTEN CAP 10 MEQ PO PRN (05:36)
[2020-06-21] MEDS ORDERED: K-DUR TAB 20 MEQ PO PRN (05:36)
[2020-06-21] MEDS ORDERED: POTASSIUM CHL 40 MEQ/NS 0.45% 500 ML IV PRN (05:36)
[2020-06-21] MEDS ORDERED: POTASSIUM CHL 60 MEQ/NS 0.45% 500 ML IV PRN (05:36)
[2020-06-21] MEDS ORDERED: POTASSIUM CHLORIDE LIQ 20 MEQ UDC PO PRN (05:36)
[2020-06-21] MEDS ORDERED: K-RIDER 10 MEQ/NS 100 ML 10 MEQ/100 ML BAG IV PRN (05:36)
--- NOTE | 2020-06-21 05:43 | RAD ---
HISTORYSOBSTUDYAP [id number]/18/2020FINDINGSContinued cardiac prominence with essentially clear lungs and pleura l spaces. There is no evidence for segmental or lobar consolidation, pulmonary edema or pleural fluid .IMPRESSIONNo interval change demonstrated since 1 day prior.Electronically signed by: SAV ELLIS (Jun 21, 2020 05:42:50)
[2020-06-21] MEDS: TESSALON PERLES PO SCH (06:21)
[2020-06-21] MEDS: ZOSYN VIAL 2.25 GRAMS 2.25 G in NS 100 ML IV + SPIKE MINIBAG* 100 ML IV SCH (06:21)
[2020-06-21] MEDS: HumaLOG SC PRN (06:22)
[2020-06-21] MEDS: DUONEB 0.5 MG/3 MG (3 mL) NEB SCH (09:00)
[2020-06-21] MEDS: MUCOMYST (RESPIRATORY USE ONLY) NEB SCH (09:00)
[2020-06-21] MEDS: PULMICORT NEB TX 0.5 MG NEB SCH (09:00)
[2020-06-21] MEDS: BENICAR TAB 40 MG PO SCH (09:29)
[2020-06-21] MEDS: CATAPRES TAB 0.1 MG PO SCH (09:30)
[2020-06-21] MEDS: LEVEMIR SC SCH (09:30)
[2020-06-21] MEDS: LOVENOX INJ 30 MG SYR SC SCH (09:33)
[2020-06-21] MEDS: PEPCID 20 MG IV PREMIX* 20 MG/50 ML BAG IV SCH (09:34)
[2020-06-21] MEDS: NORVASC TAB 10 MG PO SCH (09:34)
[2020-06-21] MEDS: REMDESIVIR (INVESTIGATIONAL DRUG GS-5734) 100 MG in NS 250 ML IV 250 ML IV SCH (09:35)
[2020-06-21] MEDS: VSL#3 PO SCH (09:35)
[2020-06-21] MEDS: PROTONIX INJ 40 MG VIAL IVP SCH (09:35)
[2020-06-21] MEDS: ROBITUSSIN DM PO SCH (09:36)
--- NOTE | 2020-06-21 10:13 | W.DIS.FURT ---
Summary of Discharge Discharge Summary of Date Date of Exam: 06/21/20 Admission Date Date of Admission: 06/18/20 Admission Diagnosis Patient Problems (Updated 06/19/20 @ 10:21 by Erick Lopez) Lobar pneumonia, unspecified organism (Acute) J18.1 Leukocytopenia, unspecified (Acute) D72.819 Acute hyponatremia (Acute) E87.1 Uncontrolled type 2 diabetes mellitus (Acute) E11.65 Multifocal pneumonia (Acute) J18.9 Suspected COVID-19 virus infection (Acute) Z20.828 Chronic kidney disease (Chronic) N18.9 Diabetes mellitus (Chronic) E11.9 Hypertension (Chronic) I10 Hospital Course: Pt is a 64 yo m pmhx HTN, DMT2, CKD, admitted for pneumonia. He received Remdesivir, Abx: Levaquin + Zosyn, Solumedrol, Bronchodilators, immune supporting supplements. He was found to be covid negative during hospital stay(rapid and pcr). On day of discharge he was breathing comfortably on RA. Labs/imaging: Wbc 17.1(d/t steroids), Hgb 11.4, Plt 401, Na 141, K 3.1, Cr 1.81(improving downtrending), Gluc 236, CRP 169>94, CXR: negative, TTE:EF:56%, SputumCx normal chase. He received IVF for PRABHU and HCTZ was disconitnued. Pt had hyperglycemia and had been started on Lantus requiring 15 units BID. Pt discharged home in stable condition with rx z-pack and short 5 day course of prednisone. Instructed to follow up with pcp in 1 week. Vital Signs: Vital Signs (72 hours) 06/18/20 12:36 06/18/20 14:04 06/18/20 15:56 Temperature 98.5 F Pulse Rate 91 H 72 Pulse Rate [Left Brachial] Respiratory Rate 20 20 18 Blood Pressure 140/79 140/62 Blood Pressure [Left Arm] O2 Sat by Pulse Oximetry 93 L 96 06/18/20 17:45 06/18/20 18:00 06/18/20 18:08 Temperature 98.2 F Pulse Rate 66 61 Pulse Rate [Left Brachial] 62 Respiratory Rate 20 21 Blood Pressure 159/93 Blood Pressure [Left Arm] 136/82 O2 Sat by Pulse Oximetry 97 97 96 06/18/20 18:19 06/18/20 19:00 06/18/20 20:00 Temperature 97.6 F Pulse Rate 61 Pulse Rate [Left Brachial] 63 63 Respiratory Rate 11 L 21 Blood Pressure 140/62 Blood Pressure [Left Arm] 140/83 167/94 O2 Sat by Pulse Oximetry 96 97 97 06/18/20 21:00 06/18/20 22:00 06/18/20 22:20 Temperature Pulse Rate 68 Pulse Rate [Left Brachial] 62 60 Respiratory Rate 20 24 Blood Pressure Blood Pressure [Left Arm] 172/93 145/90 O2 Sat by Pulse Oximetry 98 96 95 06/18/20 23:00 06/19/20 00:00 06/19/20 01:00 Temperature 98.2 F Pulse Rate Pulse Rate [Left Brachial] 57 L 55 L 54 L Respiratory Rate 26 H 24 20 Blood Pressure Blood Pressure [Left Arm] 145/92 142/87 137/84 O2 Sat by Pulse Oximetry 96 98 97 06/19/20 02:00 06/19/20 03:00 06/19/20 04:00 Temperature 97.9 F Pulse Rate Pulse Rate [Left Brachial] 53 L 50 L 60 Respiratory Rate 21 19 22 Blood Pressure Blood Pressure [Left Arm] 146/87 135/77 151/87 O2 Sat by Pulse Oximetry 98 96 98 06/19/20 05:00 06/19/20 06:00 06/19/20 07:00 Temperature Pulse Rate Pulse Rate [Left Brachial] 60 50 L 59 L Respiratory Rate 20 19 21 Blood Pressure Blood Pressure [Left Arm] 127/80 120/71 132/83 O2 Sat by Pulse Oximetry 98 97 97 06/19/20 08:00 06/19/20 09:00 06/19/20 09:40 Temperature 97.9 F Pulse Rate Pulse Rate [Left Brachial] 68 61 Respiratory Rate 23 22 Blood Pressure Blood Pressure [Left Arm] 122/80 124/82 O2 Sat by Pulse Oximetry 97 98 99 06/19/20 10:00 06/19/20 11:00 06/19/20 12:00 Temperature 98.1 F Pulse Rate Pulse Rate [Left Brachial] 60 63 48 L Respiratory Rate 30 H 17 33 H Blood Pressure Blood Pressure [Left Arm] 127/84 138/82 129/79 O2 Sat by Pulse Oximetry 98 99 98 06/19/20 13:00 06/19/20 14:00 06/19/20 15:00 Temperature Pulse Rate Pulse Rate [Left Brachial] 70 72 63 Respiratory Rate 21 15 21 Blood Pressure Blood Pressure [Left Arm] 90/71 128/82 119/77 O2 Sat by Pulse Oximetry 98 98 97 06/19/20 16:00 06/19/20 17:00 06/19/20 18:00 Temperature 98.5 F Pulse Rate Pulse Rate [Left Brachial] 58 L 49 L 48 L Respiratory Rate 21 22 21 Blood Pressure Blood Pressure [Left Arm] 141/84 123/77 135/80 O2 Sat by Pulse Oximetry 97 98 98 06/19/20 19:00 06/19/20 20:00 06/19/20 21:00 Temperature 97.6 F Pulse Rate 50 L Pulse Rate [Left Brachial] 63 51 L 61 Respiratory Rate 24 21 23 Blood Pressure Blood Pressure [Left Arm] 119/88 136/81 117/59 O2 Sat by Pulse Oximetry 96 96 97 06/19/20 22:00 06/19/20 23:00 06/20/20 00:00 Temperature 97.7 F Pulse Rate Pulse Rate [Left Brachial] 61 60 46 L Respiratory Rate 24 26 H 20 Blood Pressure Blood Pressure [Left Arm] 143/79 139/80 117/63 O2 Sat by Pulse Oximetry 98 98 97 06/20/20 01:00 06/20/20 02:00 06/20/20 03:00 Temperature Pulse Rate Pulse Rate [Left Brachial] 43 L 49 L 44 L Respiratory Rate 19 19 20 Blood Pressure Blood Pressure [Left Arm] 104/57 148/67 129/78 O2 Sat by Pulse Oximetry 98 99 98 06/20/20 04:00 06/20/20 05:00 06/20/20 06:00 Temperature 97.8 F Pulse Rate Pulse Rate [Left Brachial] 45 L 43 L 43 L Respiratory Rate 20 19 18 Blood Pressure Blood Pressure [Left Arm] 144/77 127/77 149/82 O2 Sat by Pulse Oximetry 99 96 98 06/20/20 07:00 06/20/20 08:00 06/20/20 09:00 Temperature 98.2 F Pulse Rate Pulse Rate [Left Brachial] 46 L 84 64 Respiratory Rate 19 19 25 H Blood Pressure Blood Pressure [Left Arm] 127/79 115/73 145/77 O2 Sat by Pulse Oximetry 98 97 100 06/20/20 09:15 06/20/20 10:14 06/20/20 11:00 Temperature Pulse Rate Pulse Rate [Left Brachial] 72 65 Respiratory Rate 22 23 Blood Pressure Blood Pressure [Left Arm] 116/64 122/74 O2 Sat by Pulse Oximetry 98 96 97 06/20/20 12:00 06/20/20 13:37 06/20/20 15:00 Temperature 98.2 F Pulse Rate Pulse Rate [Left Brachial] 64 74 72 Respiratory Rate 25 H 17 18 Blood Pressure Blood Pressure [Left Arm] 145/77 126/75 O2 Sat by Pulse Oximetry 100 98 97 06/20/20 16:00 06/20/20 17:28 06/20/20 18:00 Temperature Pulse Rate Pulse Rate [Left Brachial] 67 67 63 Respiratory Rate 20 21 27 H Blood Pressure Blood Pressure [Left Arm] 126/65 124/64 O2 Sat by Pulse Oximetry 98 98 100 06/20/20 19:00 06/20/20 21:00 06/20/20 21:38 Temperature 97.7 F Pulse Rate 59 L Pulse Rate [Left Brachial] 56 L 72 Respiratory Rate 17 25 H Blood Pressure Blood Pressure [Left Arm] 127/75 144/75 O2 Sat by Pulse Oximetry 99 97 100 06/20/20 22:00 06/20/20 23:00 06/21/20 00:00 Temperature 97.6 F Pulse Rate Pulse Rate [Left Brachial] 66 62 62 Respiratory Rate 18 16 12 Blood Pressure Blood Pressure [Left Arm] 144/81 111/56 117/75 O2 Sat by Pulse Oximetry 98 96 99 06/21/20 01:00 06/21/20 02:00 06/21/20 03:00 Temperature Pulse Rate Pulse Rate [Left Brachial] 60 58 L 49 L Respiratory Rate 14 16 15 Blood Pressure Blood Pressure [Left Arm] 139/76 136/76 135/83 O2 Sat by Pulse Oximetry 99 98 100 06/21/20 04:00 06/21/20 05:00 06/21/20 06:00 Temperature 97.8 F Pulse Rate Pulse Rate [Left Brachial] 53 L 52 L 53 L Respiratory Rate 15 13 12 Blood Pressure Blood Pressure [Left Arm] 140/75 147/81 127/67 O2 Sat by Pulse Oximetry 100 100 100 06/21/20 09:00 Temperature Pulse Rate 53 L Pulse Rate [Left Brachial] Respiratory Rate Blood Pressure Blood Pressure [Left Arm] O2 Sat by Pulse Oximetry 100 Labs: Laboratory Last Values WBC 17.4 X10^3/uL (3.6-10.0) H 06/21/20 04:00 RBC 4.38 X10^6/uL (4.7-6.0) L 06/21/20 04:00 Hgb 11.4 g/dL (13.5-18.0) L 06/21/20 04:00 Hct 35.4 % (42.0-54.0) L 06/21/20 04:00 MCV 80.8 fL (80.0-100.0) 06/21/20 04:00 MCH 26.1 pg (27.0-34.0) L 06/21/20 04:00 MCHC 32.3 g/dL (33.0-35.0) L 06/21/20 04:00 RDW 14.2 % (11.6-16.5) 06/21/20 04:00 Plt Count 401 X10^3/uL (150.0-450.0) 06/21/20 04:00 Plt Count Comment Adequate (ADEQUATE) 06/20/20 04:01 MPV 8.5 fL (7.4-11.0) 06/21/20 04:00 Neut % (Auto) 88.0 % (42.0-75.0) H 06/21/20 04:00 Lymph % (Auto) 6.2 % (21.0-51.0) L 06/21/20 04:00 [place] % (Auto) 5.7 % (0.0-13.0) 06/21/20 04:00 Eos % (Auto) 0.0 % (0.9-2.9) L 06/21/20 04:00 Baso % (Auto) 0.1 % (0.2-1.0) L 06/21/20 04:00 Neut # (Auto) 15.3 x10^3/uL (2.2-4.8) H 06/21/20 04:00 Lymph # (Auto) 1.1 X10^3/uL (1.3-2.9) L 06/21/20 04:00 [place] # (Auto) 1.0 x10^3/uL (0.3-0.8) H 06/21/20 04:00 Eos # (Auto) 0.0 x10^3/uL (0.0-0.2) 06/21/20 04:00 Baso # (Auto) 0.0 X10^3/uL (0.0-0.1) 06/21/20 04:00 Absolute Nucleated RBC 0.0 /100WBC 06/21/20 04:00 Total Counted 100 06/20/20 04:01 Neutrophils % (Manual) 91 % (39-76) H 06/20/20 04:01 Band Neutrophils % 10 % (0-10) 06/19/20 04:00 Lymphocytes % (Manual) 7 % (13-43) L 06/20/20 04:01 Monocytes % (Manual) 2 % (4-9) L 06/20/20 04:01 Plt Morphology Comment Normal (NORMAL) 06/20/20 04:01 RBC Morphology Normal (NORMAL) 06/20/20 04:01 Hypochromasia Slight A 06/19/20 04:00 Sample Site Lrad 06/19/20 04:57 ABG pH 7.450 (7.35-7.45) 06/19/20 04:57 ABG pCO2 38.0 mmHg (35.0-45.0) 06/19/20 04:57 ABG pO2 85.0 mmHg (80.0-100.0) 06/19/20 04:57 ABG HCO3 26.4 mmol/L (22-26) H 06/19/20 04:57 ABG O2 Saturation 97.0 % (90-100) 06/19/20 04:57 ABG Base Excess 2.4 mmol/L (-2.0-2.0) H 06/19/20 04:57 Mahesh Test Pos 06/19/20 04:57 A-a Gradient 17.0 mmHg 06/19/20 04:57 FiO2 21.0 06/19/20 04:57 Blood Gas Comments Alexander abg well-mtf 06/19/20 04:57 Sodium 138 mmol/L (136-145) 06/21/20 04:00 Corrected Sodium 141 mmol/L (136-145) 06/21/20 04:00 Potassium 3.1 mmol/L (3.5-5.1) L 06/21/20 08:07 Chloride 103 mmol/L (98-107) 06/21/20 04:00 Carbon Dioxide 28.8 mmol/L (21-32) 06/21/20 04:00 BUN 44 mg/dL (7-18) H 06/21/20 04:00 Creatinine 1.81 mg/dL (0.70-1.30) H 06/21/20 04:00 Est GFR (MDRD) Af Amer 48 (>60) L 06/21/20 04:00 Est GFR (MDRD) Non-Af 40 (>60) L 06/21/20 04:00 Glucose 236 mg/dL (65-99) H 06/21/20 04:00 POC Glucose (mg/dL) 315 mg/dL (65-99) H 06/20/20 20:31 Lactic Acid 1.3 mmol/L (0.4-2.0) 06/18/20 14:48 Calcium 8.4 mg/dL (8.5-10.1) L 06/21/20 04:00 Corrected Calcium 10.0 mg/dL (8.5-10.1) 06/21/20 04:00 Magnesium 2.3 mg/dL (1.7-2.9) 06/21/20 04:00 Ferritin 3914 ng/mL (26-388) H 06/20/20 04:01 Total Bilirubin 0.40 mg/dL (0.2-1.0) 06/21/20 04:00 AST 25 Units/L (15-37) 06/21/20 04:00 ALT 49 Units/L (12-78) 06/21/20 04:00 Alkaline Phosphatase 106 Units/L (46-116) 06/21/20 04:00 Creatine Kinase 333 Units/L (39-308) H 06/19/20 16:45 CK-MB (CK-2) 1.9 ng/mL (0-4.0) 06/19/20 16:45 CK/CKMB % Calc 0.6 % (<4) 06/19/20 16:45 Troponin I < 0.02 ng/mL (0-1.5) 06/19/20 16:45 C-Reactive Protein 94.00 mg/L (0-3.0) H 06/21/20 04:00 B-Natriuretic Peptide 80.5 pg/mL (0-79) H 06/19/20 08:46 Total Protein 6.5 g/dL (6.4-8.2) 06/21/20 04:00 Albumin 2.0 g/dL (3.4-5.0) L 06/21/20 04:00 Globulin 4.5 g/dL (2.5-4.5) 06/21/20 04:00 Albumin/Globulin Ratio 0.4 Ratio (1.1-2.1) L 06/21/20 04:00 Specimen Type Clean catch urine 06/18/20 15:20 Urine Color Yellow (YELLOW) 06/18/20 15:20 Urine Appearance Slightly hazy (CLEAR) 06/18/20 15:20 Urine pH 5.0 (5.0 - 8.0) 06/18/20 15:20 Ur Specific [place] 1.025 (1.000-1.030) 06/18/20 15:20 Urine Protein 3+ (NEGATIVE) 06/18/20 15:20 Urine Glucose (UA) 4+ (NEGATIVE) 06/18/20 15:20 Urine Ketones Negative (NEGATIVE) 06/18/20 15:20 Urine Occult Blood 4+ (NEGATIVE) 06/18/20 15:20 Urine Nitrite Negative (NEGATIVE) 06/18/20 15:20 Urine Bilirubin Negative (NEGATIVE) 06/18/20 15:20 Urine Urobilinogen 1+ (NORMAL) 06/18/20 15:20 Ur Leukocyte Esterase Negative (NEGATIVE) 06/18/20 15:20 Urine RBC 3-5 /HPF (0-3) A 06/18/20 15:20 Urine WBC 0-2 /HPF (0-5) 06/18/20 15:20 Ur Squamous Epith Cells Negative /HPF (NEGATIVE) 06/18/20 15:20 Urine Bacteria Negative /HPF (NEGATIVE) 06/18/20 15:20 Ur Culture Indicated? No/not indicated 06/18/20 15:20 SARS-CoV-2 (PCR) Negative (NEGATIVE) 06/18/20 15:20 Reason For Visit: PNEUMONIA, HYPONATREMIA,CKD Discharge Date Discharge Date: 06/21/20 Discharge Diagnosis All Active Problems (Updated 06/19/20 @ 10:21 by Erick Lopez) Lobar pneumonia, unspecified organism (Acute) Leukocytopenia, unspecified (Acute) Acute hyponatremia (Acute) Uncontrolled type 2 diabetes mellitus (Acute) Multifocal pneumonia (Acute) Suspected COVID-19 virus infection (Acute) Chronic kidney disease (Chronic) Diabetes mellitus (Chronic) Hypertension (Chronic) Plan of Treatment: Continue with present treatment and follow up plan. Pt is to keep follow up a ppointment as instructed and take medications as ordered. Discharge Medications Discharge Medications: No Known Drug Allergies Allergy (Verified 06/18/20 12:35) CONTINUE taking the following medications amlodipine 10 mg PO DAILY 06/18/20 [History] cephalexin 500 mg PO QID 06/18/20 [History] clonidine HCl 0.1 mg PO BID 06/18/20 [History] diclofenac sodium 75 mg PO DAILY 06/18/20 [History] metformin 1,000 mg PO DAILY 06/18/20 [History] olmesartan-hydrochlorothiazide 1 tab PO DAILY 06/18/20 [History] oxycodone-acetaminophen 1 tab PO Q6H PRN 06/18/20 [History] tramadol 50 mg PO TID 06/18/20 [History] Discharge Disposition Discharge Disposition: Home Discharge Condition: Stable
[2020-06-21 11:35] VITALS: BP 171/87
== END 2020-06-21 12:10 | disposition home or self-care (01) | DRG 194 ==
LOC: ER 12:34 → ICU 12:34 → OBSVTOIN 16:38 → ICU 17:37
PROVIDERS: ADMIT Internal Medicine; ATTEND Internal Medicine
DX: R26.89 Other abnormalities of gait and mobility; J18.8 Other pneumonia, unspecified organism; N18.9 Chronic kidney disease, unspecified; I12.9 Hypertensive chronic kidney disease with stage 1 through stage 4 chronic kidney disease, or unspecified chronic kidney disease; D72.819 Decreased white blood cell count, unspecified; R06.02 Shortness of breath; R94.31 Abnormal electrocardiogram [ECG] [EKG]; E87.1 Hypo-osmolality and hyponatremia; Z20.828 Contact with and (suspected) exposure to other viral communicable diseases; Z79.899 Other long term (current) drug therapy; E11.65 Type 2 diabetes mellitus with hyperglycemia